=== PATIENT | female | born 1970 | race Caucasian/White ===

== ENCOUNTER 2018-03-29 19:11 | Emergency (ER) | payer BC, OTHER ==
[~2018-03-29] VITALS: Ht 167.6 cm; Wt 80.7 kg
[2018-03-29 19:17] VITALS: Ht 167.6 cm; Wt 80.7 kg
[2018-03-29] MEDS ORDERED: OXYCODONE HCL IR 5 MG TAB (IMMEDIATE RELEASE) PO STA (19:26)
[2018-03-29] MEDS ORDERED: CEPHALEXIN MONOHYDRATE 250 MG CAP PO ONE (19:30)
--- NOTE | 2018-03-29 20:04 | DIAGNOSTIC IMAGING REPORT ---
R HAND MIN 3 VIEWS ROUTINE CLINICAL HISTORY: 47 years-old Female presenting with eval for fx. TECHNIQUE: Frontal, oblique, and lateral views of the right hand were obtained. COMPARISON: None. FINDINGS: Joint space loss, osteophytosis, subchondral sclerosis noted at the scaphoid-trapezium and scaphoid-trapezoid articulations. No acute fracture or malalignment. No radiographic soft tissue abnormality. IMPRESSION: 1. No acute osseous injury. 2. Degenerative changes at the scaphoid-trapezium and scaphoid-trapezoid articulations, characteristic of osteoarthritis. Electronically signed by: Quan Mathias M.D. 03/29/2018 8:03 PM Dictated Date/Time: 03/29/2018 8:01 PM
[2018-03-29] MEDS ORDERED: OXYCODONE IR HOME PACK PO ONE (20:30)
[2018-03-29 20:38] VITALS: BP 131/97; PULSE 81; TEMP 36.6; O2SAT 98
--- NOTE | 2018-03-29 21:53 | EMERGENCY ROOM VISIT NOTE ---
History Report prepared by Nereida: Domitila Wright Under the Supervision of: Dr. Christian Diggs M.D. First contact with patient: 19:21 Chief Complaint: HAND PAIN/INJURY Stated Complaint: RIGHT HAND CRUSH History of Present Illness The patient is a 47 year old female who presents to the Emergency Room with complaints of constant right hand pain and tingling secondary to an injury that occurred just prior to arrival. The patient notes that she was hooking up a wagon to a tractor when the tongue of the tractor pinched her right hand. The patient reports tingling in the 4th and 5th fingers on her right hand, and she describes the sensation as "pins and needles." She currently rates her pain a 6/ 10. The patient claims that she did no injure any other body part. She also denies a history of hypertension. Source of History: patient Onset: just prior to arrival Position: hand (right) Symptom Intensity: 6/10 Quality: tingling Timing: constant Associated Symptoms: No weakness Review of Systems See HPI for pertinent positives & negatives. A total of 6 systems reviewed and were otherwise negative. Past Medical & Surgical Medical Problems: (1) No significant past medical history Family History No pertinent family history Social History Smoking Status: Never Smoker Allergies Coded Allergies: Penicillins (Verified Allergy, Severe, 09/16/09) HIVES Physical Exam Vital Signs Date Time Temp Pulse Resp B/P (MAP) Pulse Ox O2 Delivery O2 Flow Rate FiO2 03/29/18 20:38 36.6 81 16 131/97 98 03/29/18 20:37 81 16 131/97 98 Room Air 03/29/18 19:17 36.6 85 16 149/101 98 Room Air Physical Exam Constitutional: Vital signs reviewed. Respiratory: Clear to auscultation bilaterally. Breath sounds are equal bilaterally. Cardiovascular: Regular rate and rhythm. No rubs or gallops. Musculoskeletal: Localized swelling and tenderness to the right hand over the fifth metacarpal phalangeal joint. She is able to flex and extend the fourth and fifth digits. Normal distal cap refill. Integumentary: 1 cm C-shaped skin flap to the volar aspect of the fifth MCP joint without bleeding or injury to deeper structures. Neurological: The patient is awake and alert. No focal deficits. Sensation is intact throughout the right hand including fourth and fifth digits. Psychiatric: Normal affect. Medical Decision & Procedures ER Provider Diagnostic Interpretation: Radiology results as stated below per my review and the radiologist's interpretation: R HAND MIN 3 VIEWS ROUTINE CLINICAL HISTORY: 47 years-old Female presenting with eval for fx. TECHNIQUE: Frontal, oblique, and lateral views of the right hand were obtained. COMPARISON: None. FINDINGS: Joint space loss, osteophytosis, subchondral sclerosis noted at the scaphoid-trapezium and scaphoid-trapezoid articulations. No acute fracture or malalignment. No radiographic soft tissue abnormality. IMPRESSION: 1. No acute osseous injury. 2. Degenerative changes at the scaphoid-trapezium and scaphoid-trapezoid articulations, characteristic of osteoarthritis. Electronically signed by: Quan Mathias M.D. 03/29/2018 8:03 PM Dictated Date/Time: 03/29/2018 8:01 PM Medications Administered Medications (Trade) Dose Ordered Sig/Estrada Route Start Time Stop Time Status Last Admin Dose Admin Cephalexin Monohydrate (Keflex Cap) 500 mg NOW ONCE PO 03/29/18 19:30 03/29/18 19:31 DC 03/29/18 20:12 500 MG Oxycodone HCl (Roxicodone Immediate Rel Tab) 5 mg NOW STAT PO 03/29/18 19:26 03/29/18 19:27 DC 03/29/18 20:13 5 MG Oxycodone HCl (Roxicodone Immediate Rel 5MG Home Pack) 1 homepack UD ONCE PO 03/29/18 20:30 03/29/18 20:31 DC 03/29/18 20:36 1 HOMEPACK ED Course 1924: The patient was evaluated in room C12B. A complete history and physical exam was performed. 1925: Administered Oxycodone HCl 5 mg PO. 1929: Administered Keflex Cap 500 mg PO. 2029: Administered Oxycodone HCl 1 homepack PO. 2037: Upon reevaluation, the patient appeared to have improvement of her symptoms. I discussed arthur's findings with her, including her x-ray. The patient noted that her last tetanus shot was in 2008. She verbalized agreement of the treatment plan. She stated that she would follow up with Dr. Rivero - Orthopedics. The patient was discharged home. Medical Decision This is a 47-year-old female presents with an injury to right hand. Differential diagnosis includes open fracture, partial tendon injury, crush injury, laceration. I did perform a limited focused review of portions of the patient's old chart on the electronic medical record. The patient has had no recent pertinent visits to this hospital. I did evaluate the patient as noted above. The patient presents with a crush injury to her right hand. Her tetanus is up-to-date. Initially was concerned about an open fracture and so I did treat the patient with oxycodone and Keflex. I did order and personally review the patient's hand x-rays as described above. There is no evidence of acute fracture. I did reexamine the patient. I did clean the area with water and she did not have a laceration to her hand. She only had a small superficial skin flap. She cleaned the area with soap and water and she was placed in a bare metal splint to immobilize the MCP joint in case there was a partial tendon injury. She was advised to follow- up with Dr. Rivero. She was discharged with a home pack of oxycodone. She was given return precautions as outlined below. Medication Reconcilliation Current Medication List: was personally reviewed by me Blood Pressure Screening Patient's blood pressure: Elevated blood pressure Blood pressure disposition: Referred to PCP Impression Primary Impression: Crushing injury of right hand Scribe Attestation The scribe's documentation has been prepared under my direct and personally reviewed by me in its entirety. I confirm that the note above accurately reflects all work, treatment, procedures, and medical decision making performed by me. Departure Information Dispostion Home / Self-Care Forms HOME CARE DOCUMENTATION FORM, IMPORTANT VISIT INFORMATION Patient Instructions My [facility] Additional Instructions You have been examined and treated today on an emergency basis only. This is not a substitute for, or an effort to provide, complete comprehensive medical care. It is impossible to recognize and treat all injuries or illnesses in a single emergency department visit. It is therefore important that you follow up closely with Dr. Rivero of orthopedics next week. Call as soon as possible for an appointment. Return for worsening symptoms or if you develop loss of sensation or ability to move your right fifth digit or if the finger becomes severely swollen or discolored or cold, or any other concerning symptoms. Problem Qualifiers Primary Impression: Crushing injury of right hand Encounter type: initial encounter Qualified Codes: S67.21XA - Crushing injury of right hand, initial encounter
== END 2018-03-29 20:38 | disposition home or self-care (01) ==
LOC: C.EDB 19:14 → C.EDC 20:38
DX: S67.21XA Crushing injury of right hand, initial encounter (principal); W23.0XXA Caught, crushed, jammed, or pinched between moving objects, initial encounter; Y93.89 Activity, other specified; I10 Essential (primary) hypertension; Z88.0 Allergy status to penicillin

== ENCOUNTER 2025-02-11 06:48 | Observation (INO) ==
--- NOTE | 2025-01-15 11:43 | PAT Medication Instructions ---
Medication Instructions Date of Service January 15, 2025 Home Medications cholecalciferol (vitamin D3) 25 mcg (1,000 unit) tablet (Vitamin D3) 3,000 unit PO QAM omega 1-cxd-nyy-fish oil 1,000 mg (120 mg-180 mg) capsule (Fish Oil) 2 cap PO QPM metformin 500 mg tablet 500 mg PO HS L.acidophilus,rhamnosus-B.breve-S.thermophilus 3 billion cell chew tab 2 tab PO QAM turmeric root extract 150 mg-randall root extract 25 mg chewable tablet 2 tab PO QAM duloxetine 30 mg capsule,delayed release 30 mg PO HS lisinopril 2.5 mg tablet 2.5 mg PO HS meloxicam 15 mg tablet 15 mg PO HS rosuvastatin 5 mg tablet 5 mg PO HS semaglutide 1 mg/dose (2 mg/1.5 mL) subcutaneous pen injector 1 mg subcut WK MEDICATION INSTRUCTIONS: ASK your surgeon for instructions meloxicam 15 mg tablet 15 mg PO HS STOP taking 2 weeks before surgery turmeric root extract 150 mg-randall root extract 25 mg chewable tablet 2 tab PO QAM omega 8-qlh-wkv-fish oil 1,000 mg (120 mg-180 mg) capsule (Fish Oil) 2 cap PO QPM DO NOT take the morning of surgery cholecalciferol (vitamin D3) 25 mcg (1,000 unit) tablet (Vitamin D3) 3,000 unit PO QAM L.acidophilus,rhamnosus-B.breve-S.thermophilus 3 billion cell chew tab 2 tab PO QAM Take evening before surgery metformin 500 mg tablet 500 mg PO HS duloxetine 30 mg capsule,delayed release 30 mg PO HS lisinopril 2.5 mg tablet 2.5 mg PO HS rosuvastatin 5 mg tablet 5 mg PO HS Other Notes As per RN phone interview, last dose to be 01/31/25 of: semaglutide 1 mg/dose (2 mg/1.5 mL) subcutaneous pen injector 1 mg subcut WK Remember: NOTHING TO EAT OR DRINK AFTER MIDNIGHT If you have any questions please call us at [phone] or [phone] or [phone] or [phone]
--- NOTE | 2025-01-22 09:07 | Anesthesiology Consultation ---
Date of Service January 22, 2025 Assessment & Plan (1) Encounter for pre-operative examination: - Check BSG DOS - Infectious disease screening: Per assessment on 01/22/25- No known recent infectious disease contacts or current infectious disease symptoms. - GLP-1 medication instructions: Patient informed by [facility] to stop 7 days prior to surgery- voiced understanding. DOS 02/11. Advised last dose to be 01/31. - Outpatient joint pathway: Per OR booking comments, plan for outpatient joint program. Patient seen at [facility] 01/22/25. Patient is an acceptable candidate to proceed as planned outpatient joint pathway pending perioperative course. Surgeon's office arranging post-op home management. - Patient acceptable risk for surgery pending surgeon-ordered PCP preop evaluation (Chary BOWLING, appt 02/01). Chart Review Chart Review: Patient seen in Pre Admission Testing History Surgery Operation Date: 02/11/25 08:15 Proposed Procedures p OP: Left Total Hip Arthroplasty - Quan Peng MD Height/Weight Height: 5 ft 6 in Weight: 78.2 kg Allergies Allergy/AdvReac Type Severity Reaction Status Date / Time Penicillins Allergy Severe Itchiness Verified 01/15/25 11:14 Medications Home Medications Medication Instructions Recorded Confirmed Last Taken cholecalciferol (vitamin D3) 25 3,000 unit PO QAM 09/16/19 01/15/25 10/09/22 08:00 mcg (1,000 unit) tablet (Vitamin D3) omega 5-vek-pej-fish oil 1,000 mg 2 cap PO QPM 09/16/19 01/15/25 09/12/22 (120 mg-180 mg) capsule (Fish Oil) metformin 500 mg tablet 500 mg PO HS 07/27/22 01/15/25 10/08/22 L.acidophilus,rhamnosus-B.breve-S.thermophilus 2 tab PO QAM 10/04/22 01/15/25 10/08/22 3 billion cell chew tab turmeric root extract 150 2 tab PO QAM 10/04/22 01/15/25 10/04/22 mg-randall root extract 25 mg chewable tablet duloxetine 30 mg capsule,delayed 30 mg PO HS 01/15/25 01/15/25 Unknown release lisinopril 2.5 mg tablet 2.5 mg PO HS 01/15/25 01/15/25 Unknown meloxicam 15 mg tablet 15 mg PO HS 01/15/25 01/15/25 Unknown rosuvastatin 5 mg tablet 5 mg PO HS 01/15/25 01/15/25 Unknown semaglutide 1 mg/dose (2 mg/1.5 1 mg subcut WK 01/15/25 01/15/25 Unknown mL) subcutaneous pen injector Past Medical History Medical History Diabetes mellitus History of prolapse of bladder s/p bladder lift HLD (hyperlipidemia) HTN (hypertension) Hx of squamous cell carcinoma Osteoarthritis Perimenopausal Taking duloxetine for hot flashes Sleep apnea "Mild" Recently started CPAP (01/14/25) Exercise / Class Metabolic Activity II 4-5 Yardwork/Stairs/Walk up hill (one FS: No CP, no SOB) Past Family History Family History Mother Cancer Father Diabetes Other No family history of adverse response to anesthesia Past Surgical History Surgical History H/O: hysterectomy (2012) d/t prolapse- vaginal hysterectomy History of bladder surgery (2015) Bladder lift (no mesh or sling) History of carpal tunnel release (2010) R/L Hx laparoscopic cholecystectomy (10/10/22) Robotic Assisted Laparoscopic Cholecystectomy Hx of colonoscopy Status post Mohs surgery for squamous cell carcinoma of skin Past Anesthesia History No Hx of Anesthesia Complications and No Family Hx of Anesthesia Complications History of PONV No Hx of PONV and No Hx of Motion Sickness Social History Smoking Status: Never smoker Do You Dip or Chew Tobacco: No Hx Alcohol Use: No Hx Substance Use: No substance use type: does not use Review of Systems Patient denies chest pain, shortness of breath, dyspnea on exertion, fever, chills, cough, wheezing, palpitations. Physical Exam Vital Signs BP 115/81 P 85 TEMP 98.0 SP02 96%RA RESP 16 Physical Full cervical extension range of motion. Full TMJ range of motion. TMD > or= 3.5 finger breaths Mallampati Score II Dentition: intact, + crown Lungs: clear throughout to auscultation Cardiac: regular rate and rhythm, no murmurs noted Spine: normal Carotid arteries: negative bruit Extremities: no LE edema Lab Results Anesthesia Preop Results Results Anesthesia Widget: WBC 6.42 K/ul (4.8-10.8) 01/22/25 Hgb 13.5 g/dl (12.0-16.0) 01/22/25 Hct 39.5 % (37.0-47.0) 01/22/25 Plt 239 K/uL (130-400) 01/22/25 Na 140 mmol/L (136-145) 01/22/25 K 3.8 mmol/L (3.5-5.1) 01/22/25 Cl 107 mmol/L (98-107) 01/22/25 CO2 26 mmol/L (21-32) 01/22/25 BUN 27 mg/dl (6-23) H 01/22/25 Creat 0.66 mg/dl (0.6-1.2) 01/22/25 Glucose Level 112 mg/dl (70-99(Fasting)) H 01/22/25 PT 10.4 Seconds (9.0-12.0) 01/22/25 PTT 27 Seconds (21-31) 01/22/25 INR 1.0 (0.9-1.1) 01/22/25 HA1c 6.1 % (4.5-5.6) H 01/22/25 Urine Color Yellow 01/22/25 Urine Appearance Cloudy (Clear) A 01/22/25 Urine pH 5.0 (4.5-7.5) 01/22/25 Urine Specific Whitmer 1.031 (1.000-1.030) H 01/22/25 Urine Protein Negative (Negative) 01/22/25 Urine Glucose (UA) Negative (Negative) 01/22/25 Urine Ketones Trace (Negative) H 01/22/25 Urine Blood Negative (Negative) 01/22/25 Urine Nitrite Negative (Negative) 01/22/25 Urine Bilirubin Negative (Negative) 01/22/25 Urine Urobilinogen Negative (Negative) 01/22/25 Urine Leukocyte Esterase Negative (Negative) 01/22/25 Urine WBC (Auto) 0-5 /hpf (0-5) 01/22/25 Urine RBC (Auto) 3-5 /hpf (0-2) H 01/22/25 Urine Hyaline Casts (Auto) 0-2 /lpf (0-2) 01/22/25 Urine Epithelial Cells (Auto) 6-10 /hpf (0-2) H 01/22/25 Urine Bacteria (Auto) 1+ (None Seen) H 01/22/25 Blood Type O Positive 01/22/25 Antibody Screen NEGATIVE 01/22/25 Testing Laboratory Results Surgeon's office made aware of abnormal UA* Electrocardiogram Date: 01/22/25 NSR at 81bpm. iRBBB. No significant change compared to 08/27/2022 per lead technician comparison.
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
[~2025-02-11 06:48] MED LIST: MEPIVACAINE HCL 1.5% 30 ML VIAL ONE
[2025-02-11] MEDS: CeleBREX 200 MG CAP PO SCH (07:17)
[2025-02-11] MEDS: LR 500ML BOLUS, THEN 15ML/HR IV SCH (07:17)
[2025-02-11] MEDS: ACETAMINOPHEN 500 MG TAB PO SCH ×2 (07:17→22:38)
[2025-02-11] MEDS: dexAMETHasone**PF** 10 MG/ML VIAL IV SCH (07:18)
[2025-02-11] MEDS: FAMOTIDINE 20 MG TAB PO SCH (07:18)
[2025-02-11] MEDS: LR 60ML/HR IV SCH (07:22)
[2025-02-11] MEDS ORDERED: MIDAZOLAM HCL 1 MG/ML 2ML VIAL ONE ×2 (07:31→07:40)
[2025-02-11] MEDS ORDERED: ATROPINE SULFATE 0.1 MG/ML 10ML SYR IV PRN (07:40)
[2025-02-11] MEDS ORDERED: ONDANSETRON INJ 2 MG/ML 2 ML VIAL IV PRN ×2 (07:40→15:49)
--- NOTE | 2025-02-11 07:53 | History & Physical Bridge Note ---
Date of Service February 11, 2025 History & Physical Bridge Note I have examined the patient, reviewed the History & Physical and in the interval since the performance of the History & Physical I have noted the following changes of clinical significance: no changes noted
[2025-02-11] MEDS: TRANEXAMIC ACID 1,000 MG **IV Pre-op IV SCH (07:55)
[2025-02-11] MEDS: ORTHO JOINT ANESTHETIC ONE (09:07)
[2025-02-11] MEDS: ROPIVACAINE 0.5% HCL/PF 246 MG, Ketorolac (*for OR use only*) 30 MG, EPINEPHrine 30MG/3... INFIL SCH (09:10)
[2025-02-11] MEDS ORDERED: ceFAZolin 330 MG/ML 1 GM VIAL ONE (09:32)
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
--- NOTE | 2025-02-11 10:34 | Operative Report ---
Post Operative Report Pre & Post Diagnosis Operation Date: 02/11/25 08:15 Pre-Op Diagnosis: Left Hip Osteoarthritis Post-Op Diagnosis: Left Hip Osteoarthritis I identified the patient and participated in the time-out.: Yes Procedure Operation Date: 02/11/25 08:15 Actual Procedures p Left Total Hip Arthroplasty, Uncemented(Left) - Quan Peng MD Surgeon Quan Peng MD Mold Press Operator Alf Chavez DO and BRITT Hercules PA-C. Estimated Blood Loss 200 Findings Consistent with Post-Op Diagnosis Specimens Left femoral head Description of Procedure Patient was brought to the operative suite where she underwent anesthesia. Patient was placed in the right lateral decubitus position. Left lower extremity was prepped and draped in the usual sterile fashion. Surgical timeout was performed. Patient underwent a left total hip arthroplasty. Please see Dr. Peng's operative report for full details. I was present and assisted with patient positioning, limb positioning, surgical approach, hemostasis, hardware implantation, wound closure, postoperative dressing placement. Patient was taken to recovery in stable condition. I attest to the content of the Intraoperative Record and any orders documented therein. Any exceptions are noted below.
--- NOTE | 2025-02-11 10:35 | Operative Report ---
Post Operative Report Pre & Post Diagnosis Operation Date: 02/11/25 08:15 Pre-Op Diagnosis: Left Hip Osteoarthritis Post-Op Diagnosis: Left Hip Osteoarthritis I identified the patient and participated in the time-out.: Yes Procedure Operation Date: 02/11/25 08:15 Actual Procedures p Left Total Hip Arthroplasty, Uncemented(Left) - Quan Peng MD Surgeon Quan Peng MD Leasing Specialist Alf Chavez DO and BRITT Hercules PA-C. Estimated Blood Loss 200 Findings Consistent with Post-Op Diagnosis Specimens femoral head Description of Procedure I was present during the entire case assisting with positioning, prepping, draping, wound retraction, wound closure, dressing and abduction pillow placement. Fellow also present. I served as an extra set of hands during the case. Please see Dr. Peng procedure note for specifics of the case. I attest to the content of the Intraoperative Record and any orders documented therein. Any exceptions are noted below.
--- NOTE | 2025-02-11 11:14 | XRay Report ---
XR pelvis 1-2V routine CLINICAL HISTORY: Post Surgical COMPARISON: 01/26/2025 FINDINGS: Left hip prosthesis shows no hardware complication. There is expected soft tissue gas. Sta ble degenerative changes right hip. IMPRESSION: Unremarkable postoperative exam. ACT 112: Negative or not required by law. Electronically signed by: Jeremiah Phan M.D. 02/11/2025 11:12 AM
--- NOTE | 2025-02-11 11:31 | Anesthesiology Progress Note ---
Date of Service February 11, 2025 Anesthesia Post Procedure Vital Signs Vital Signs: Temp Pulse Pulse Resp BP BP Pulse Ox 02/11/25 11:05 97.7 F 78 12 115/90 100 02/11/25 10:55 87 11 L 151/84 H 93 02/11/25 10:45 94 H 12 133/71 95 02/11/25 10:35 85 12 130/87 99 02/11/25 10:27 96.8 F L 92 H 13 127/81 95 02/11/25 07:38 98.2 F 83 20 133/84 95 O2 Del Method O2 Flow Rate 02/11/25 11:05 Room Air 0 02/11/25 10:55 Room Air 0 02/11/25 10:45 Room Air 0 02/11/25 10:35 Oxymask 4 02/11/25 10:27 Oxymask 4 02/11/25 07:38 Room Air Pain Intensity Left Hip: Pain Intensity: 4 Transfer of Care Handoff Completed per policy Notes Mental Status: alert / awake / arousable and participated in evaluation Patient Amnestic to Procedure: Yes Nausea / Vomiting: adequately controlled Pain: adequately controlled Airway Patency, RR, SpO2: stable & adequate BP & HR: stable & adequate Hydration State: stable & adequate Neuraxial Anesthesia: was administered and sensory block is resolving Anesthetic Complications: no major complications apparent and Pt Satisfied with anesthetic care
[2025-02-11] MEDS ORDERED: HYDROmorphone INJ 1 MG/ML SYRINGE IV PRN (15:49)
[2025-02-11] MEDS ORDERED: NALOXONE HCL 0.4 MG/1 ML VIAL/CARP IV PRN (15:49)
[2025-02-11] MEDS ORDERED: HYDROmorphone INJ 0.5 MG/0.5 ML SYR IV PRN (15:49)
[2025-02-11] MEDS ORDERED: MAGNESIUM HYDROXIDE SUSP 30 ML UDC PO PRN (15:49)
[2025-02-11] MEDS ORDERED: diphenhydrAMINE 50 MG/ML VIAL IV PRN (15:49)
[2025-02-11 15:54] VITALS: RESP 16
[2025-02-11] MEDS: SODIUM CHLORIDE 0.9% 1,000 ML IV SCH (17:52)
[2025-02-11] MEDS: Scopolamine CHECK PATCH PLACEMENT SCH (17:55)
[2025-02-11] MEDS: KETOROLAC 30 MG/ML VIAL IV SCH (18:40)
[2025-02-11] MEDS: SENNA 8.6 MG TAB PO SCH (20:26)
[2025-02-11] MEDS: OMEGA-3 (PURIFIED FISH OIL) 1 GM CAP PO SCH (20:26)
[2025-02-11] MEDS: DOCUSATE SODIUM 100 MG CAP PO SCH (20:26)
[2025-02-11] MEDS: ROSUVASTATIN CALCIUM 5 MG TAB PO SCH (20:27)
[2025-02-11] MEDS: ASPIRIN 81 MG ECTAB PO SCH (20:27)
[2025-02-12] MEDS: dexAMETHasone 10 MG in SYRINGE 0 ML IV SCH (07:23)
[2025-02-12] MEDS: CHOLECALCIFEROL 25 MCG (1000 UNITS) TAB PO SCH (07:24)
[2025-02-12] MEDS: MULTIVITAMIN TAB PO SCH (07:25)
[2025-02-12 07:35] VITALS: BP 110/72; PULSE 66; TEMP 97.7; O2SAT 98
[2025-02-12 07:36] LABS: Hematocrit (blood only) 32.1 % (37.0-47.0); Hemoglobin 10.8 g/dl (12.0-16.0); Immature Granulocytes # (auto) 0.08 K/uL (0.01-0.20); Immature Granulocytes % (auto) 0.6 %; Mean Corpuscular Hemoglobin 30.9 pg (25.0-34.0); Mean Corpuscular Volume 91.7 fL (80.0-100.0); Platelet Count 202 K/uL (130-400); RDW Standard Deviation 39.8 fL (36.4-46.3); Red Blood Count 3.50 M/uL (4.20-5.40); White Blood Count 12.96 K/ul (4.8-10.8)
[2025-02-12 07:57] LABS: Anion Gap 6.0 (3-11); Blood Urea Nitrogen 16.0 mg/dl (6-23); Calcium 9.2 mg/dl (8.6-10.3); Carbon Dioxide 28.0 mmol/L (21-32); Chloride 104.0 mmol/L (98-107); Creatinine Clr Calc Pharmacy 102.0 ml/min; Glucose 145.0 mg/dl (70-99(Fasting)); Potassium 3.9 mmol/L (3.5-5.1); Sodium 138.0 mmol/L (136-145)
[2025-02-14] MEDS ORDERED: Scopolamine REMOVE TRANSDERM PATCH ONE (08:00)
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
== END 2025-02-12 11:45 | disposition home health service (06) ==
LOC: ASU 06:48 → 3E 06:48

== ENCOUNTER 2025-02-14 21:34 | Observation (INO) ==
[2025-02-14 22:09] LABS: Hematocrit (blood only) 32.9 % (37.0-47.0); Hemoglobin 11.0 g/dl (12.0-16.0); Immature Granulocytes # (auto) 0.04 K/uL (0.01-0.20); Immature Granulocytes % (auto) 0.4 %; Mean Corpuscular Hemoglobin 31.3 pg (25.0-34.0); Mean Corpuscular Volume 93.7 fL (80.0-100.0); Platelet Count 234 K/uL (130-400); RDW Standard Deviation 42.5 fL (36.4-46.3); Red Blood Count 3.51 M/uL (4.20-5.40); White Blood Count 9.84 K/ul (4.8-10.8)
[2025-02-14] MEDS: OPTIRAY 320 125ml IV ONE (22:20)
[2025-02-14 22:26] LABS: Alanine Aminotransferase 20.0 U/L (7-52); Albumin Globulin Ratio 1.5 (0.9-2); Alkaline Phosphatase 76.0 U/L (34-104); Anion Gap 6.0 (3-11); Bilirubin,Total 0.4 mg/dl (0.2-1.0); Blood Urea Nitrogen 11.0 mg/dl (6-23); Calcium 9.1 mg/dl (8.6-10.3); Carbon Dioxide 30.0 mmol/L (21-32); Chloride 102.0 mmol/L (98-107); Creatinine Clr Calc Pharmacy 106.3 ml/min; Globulin 2.6 gm/dl (2.5-4.0); Glucose 183.0 mg/dl (70-99(Fasting)); Magnesium 1.9 mg/dl (1.7-2.4); Potassium 3.8 mmol/L (3.5-5.1); Sodium 138.0 mmol/L (136-145); Total Protein 6.4 gm/dl (6.0-8.3)
[2025-02-14] MEDS: SODIUM CHLORIDE 0.9% 1,000 ML IV SCH (22:26)
[2025-02-14 22:41] LABS: Thyroid Stimulating Hormone 1.509 uIu/ml (0.300-4.500)
--- NOTE | 2025-02-15 01:41 | Emergency Department Note ---
Impression & Plan Palpitations, Sinus tachycardia ED Provider Note NAME: KRISS HODGES AGE: 54 SEX: Female INFORMANT: Patient ED PROVIDER(S): Price Rosario MD CHIEF COMPLAINT: Palpitations PLAN: Disposition: Pending Outpatient prescription management: none Referral: MEDICAL DECISION MAKING: Patient presented because of palpitations. She had some shortness of breath. Given her recent surgery a workup was initiated. She was slightly anemic but had no leukocytosis on CBC. Chemistry panel was unremarkable. Cardiac troponin x 1 was negative. Initial ECG has some poor baseline data however she had a slight sinus tachycardia. There was no ST elevation or depression. Cardiac monitoring revealed a sinus rhythm. Patient's elevated heart rate dropped to normal without direct intervention. Repeat ECG was performed and did show a sinus rhythm. Patient's BnP and other labs were normal. CT PE study was performed. CT imaging pending. Patient's disposition signed out to Dr. Douglass at the change of shift. Care/management discussed with: none Level of care consideration(s): After review of the information above and other included data, I feel the patient may require additional care based upon CT imaging and outcome. Triage Nursing notes: reviewed and agree them. Vital Signs: reviewed and remarkable for slight tachycardia on arrival however that resolved and did not recur. Additional History obtained from: none Chronic Medical/Social Conditions affecting care: Recent hip surgery Prior/ Outside/ External records reviewed: Operative note from surgery reviewed. Patient had hip replacement done for osteoarthritis on the 02/11. Differential Diagnosis: Premature contractions, electrolyte abnormality, cardiac dysrhythmia, thyroid dysfunction, pulmonary embolism, infection, gastrointestinal, as well as other pathologies. Diagnostics, independently interpreted by me: EC-lead ECG #1 reveals a sinus tachycardia at 103 bpm. Incomplete right bundle branch block present. No ST elevation or depression. Poor baseline data. Twelve-lead ECG #2 reveals a normal sinus rhythm at 82 bpm. Incomplete right bundle branch block. No ST elevation or depression. Cardiac Monitoring: Cardiac monitoring ordered by me: The patient was placed on continuous cardiac monitoring and observed. It revealed a normal sinus rhythm at 86 beats per minute without ectopy or evidence of dysrhythmia. Medical decision rules: none Imaging studies: CT imaging of the chest reveals no obvious evidence of saddle embolism or pneumonia. Atelectasis in the bases noted. Official read pending. HPI: 54 year old Female arrives for evaluation of palpitations. This started this evening and is improving.. The patient also notes the following associated symptoms, shortness of breath and feeling weak. The patient has taken no medication for relieving factors. Current pain is rated as 0/10. Patient notes undergoing hip surgery 4 days ago. Pt denies LOC, headache, fevers, chills, diaphoresis, visual changes, neck pain, chest pain, nausea, vomiting, abdominal pain, back pain, melena, hematochezia, urinary symptoms, bleeding or drainage from surgical bandages, or other complaints. PAST MEDICAL HISTORY: See Below, osteoarthritis PAST SURGICAL HISTORY: See Below, SOCIAL HISTORY: See Below, HOME MEDICATIONS: See Below ALLERGIES: See Below VITALS: See Below PHYSICAL EXAMINATION: GENERAL: Awake, alert, iog-fulcmfeluqk-ggvebzpgu, in no distress HENT: Normocephalic, atraumatic. Oropharynx unremarkable. EYES: Normal conjunctiva. Sclera non-icteric. NECK: Inspection normal. Non-tender. Supple. No nuchal rigidity. FROM. No masses. RESPIRATORY: Clear to auscultation. No wheezes. No rales. Normal respiratory effort. CARDIAC: Normal rate. Normal rhythm. No murmurs. No rubs. Extremities warm and well perfused. Pulses equal. No JVD. GI: Soft, non-distended. No tenderness to palpation. No rebound or guarding. No masses. RECTAL: Deferred. MUSCULOSKELETAL: Atraumatic. Surgical incision is clean, dry and intact. Minimally tender on palpation over the bandages, not unexpected given postop day #4. No significant surrounding cellulitis, bleeding or discharge appreciated on inspection under the bandages. There is no CVA tenderness to palpation. No joint edema. LOWER EXTREMITIES: Left leg is slightly larger than the right although consistent with expected postoperative findings status post hip replacement. No calf tenderness or palpable cords. NEURO: Normal sensorium. No sensory or motor deficits noted. SKIN: No rash or jaundice noted. PROCEDURES: none CRITICAL CARE: none OBSERVATION NOTE: none Past Med/Surg History Problem List (Updated 02/15/25 @ 10:01 by Saeid Pineda MD) Sinus tachycardia (Acute) Palpitations (Acute) Osteoarthritis of left hip Medical History Osteoarthritis HLD (hyperlipidemia) HTN (hypertension) Sleep apnea "Mild" Recently started CPAP (01/14/25) Hx of squamous cell carcinoma Diabetes mellitus Perimenopausal Taking duloxetine for hot flashes History of prolapse of bladder s/p bladder lift Surgical History Hx laparoscopic cholecystectomy (10/10/22) Robotic Assisted Laparoscopic Cholecystectomy History of carpal tunnel release (2010) R/L Status post Mohs surgery for squamous cell carcinoma of skin Hx of colonoscopy History of bladder surgery (2015) Bladder lift (no mesh or sling) H/O: hysterectomy (2012) d/t prolapse- vaginal hysterectomy Family History Mother Cancer Father Diabetes Other No family history of adverse response to anesthesia Social History Smoking Status: Never smoker Second Hand Exposure: No; Do You Dip or Chew Tobacco: No; Hx Alcohol Use: No Hx Substance Use: No Preferred Language: Kyrgyz Communication Ability: Effective Environmental Law Professor Required: No Beliefs That Will Affect Care: Gnosticist marital status: Current Living Situation: Spouse How many Children do You have: 2 Feels Safe at Home: Yes Diet: diabetic during the past year weight has: remained stable Assistive Devices: Walker Allergies Allergies Allergy/AdvReac Type Severity Reaction Status Date / Time Penicillins Allergy Severe Itchiness Verified 02/11/25 07:04 Home Meds Home Medications Medication Instructions Recorded Confirmed cholecalciferol (vitamin D3) 25 3,000 unit PO QAM 09/16/19 02/15/25 mcg (1,000 unit) tablet (Vitamin D3) omega 9-zqu-yan-fish oil 1,000 mg 2 cap PO QPM 09/16/19 02/15/25 (120 mg-180 mg) capsule (Fish Oil) metformin 500 mg tablet 500 mg PO HS 07/27/22 02/15/25 L.acidophilus,rhamnosus-B.breve-S.thermophilus 2 tab PO QAM 10/04/22 02/15/25 3 billion cell chew tab turmeric root extract 150 2 tab PO QAM 10/04/22 02/15/25 mg-randall root extract 25 mg chewable tablet duloxetine 30 mg capsule,delayed 30 mg PO HS 01/15/25 02/15/25 release lisinopril 2.5 mg tablet 2.5 mg PO HS 01/15/25 02/15/25 meloxicam 15 mg tablet 15 mg PO HS 01/15/25 02/15/25 rosuvastatin 5 mg tablet 5 mg PO HS 01/15/25 02/15/25 semaglutide 1 mg/dose (2 mg/1.5 1 mg subcut WK 01/15/25 02/15/25 mL) subcutaneous pen injector Previous Rx's Medication Instructions Recorded oxycodone 5 mg tablet 10 mg (2 x 5 mg) PO Q6H PRN pain 02/12/25 #20 tabs aspirin 81 mg tablet,delayed 81 mg PO BID #60 tabs 02/15/25 release Results & Data (ED) Vital Signs Vital Signs - 24 hr 02/15/25 01:30 02/15/25 01:57 02/15/25 02:00 Pulse Rate 86 86 71 Respiratory Rate 16 18 Blood Pressure 117/75 110/73 Blood Pressure Mean 89 95 Pulse Oximetry 97 94 02/15/25 03:00 Pulse Rate 86 Respiratory Rate 18 Blood Pressure 121/80 Blood Pressure Mean 99 Pulse Oximetry 95 Laboratory Data 02/14/25 21:54 02/15/25 07:12 Lab Results 02/14/25 02/14/25 02/15/25 Range/Units 21:54 22:01 01:56 WBC 9.84 (4.8-10.8) K/ul RBC 3.51 L (4.20-5.40) M/uL Hgb 11.0 L (12.0-16.0) g/dl POC Hgb 11.2 L (12.0-16.0) g/dl Hct 32.9 L (37.0-47.0) % POC Hct 33 L (37-47) % MCV 93.7 (80.0-100.0) fL MCH 31.3 (25.0-34.0) pg MCHC 33.4 (32.0-36.0) g/dL RDW Std Deviation 42.5 (36.4-46.3) fL RDW Coeff of Ruperto 12.4 (11.5-14.5) % Plt Count 234 (130-400) K/uL MPV 10.9 (9.4-12.4) fL Immature Gran % (Auto) 0.4 % Neut % (Auto) 59.2 % Lymph % (Auto) 34.2 % [place] % (Auto) 4.5 % Eos % (Auto) 1.1 % Baso % (Auto) 0.6 % Neut # (Auto) 5.82 (1.40-6.50) K/uL Lymph # (Auto) 3.37 (1.20-3.40) K/uL [place] # (Auto) 0.44 (0.11-0.59) K/uL Eos # (Auto) 0.11 (0.00-0.50) K/uL Baso # (Auto) 0.06 (0.00-0.20) K/uL Immature Gran # (Auto) 0.04 (0.01-0.20) K/uL Absolute Nucleated RBC 0.02 (0.00-0.12) K/uL Nucleated RBC % (auto) 0.2 % POC Sodium 137 (135-144) mmol/L Sodium 138 (136-145) mmol/L POC Potassium 4.0 (3.3-5.0) mmol/L Potassium 3.8 (3.5-5.1) mmol/L POC Chloride 99 L (101-112) mmol/L Chloride 102 (98-107) mmol/L Carbon Dioxide 30 (21-32) mmol/L POC Total CO2 29 (24-31) mmol/L Anion Gap 6 (3-11) POC Anion Gap 14.0 L (16-25) mmol/L POC BUN 12 (7-18) mg/dl BUN 11 (6-23) mg/dl Creatinine 0.65 (0.6-1.2) mg/dl POC Creatinine 0.7 (0.6-1.3) mg/dl Est Cr Clr Drug Dosing 106.3 ml/min eGFR 105.21 BUN/Creatinine Ratio 16.9 (10-20) Glucose 183 H (70-99(Fasting)) mg/dl POC Glucose (other) 184 H (70-99) mg/dl Calcium 9.1 (8.6-10.3) mg/dl POC Ioniz Calcium Becka 1.18 (1.12-1.32) mmol/l Magnesium 1.9 (1.7-2.4) mg/dl Total Bilirubin 0.4 (0.2-1.0) mg/dl AST 37 (13-39) U/L ALT 20 (7-52) U/L Alkaline Phosphatase 76 (34-104) U/L Troponin I High Sens 3.3 2.5 (0-14) pg/ml B-Natriuretic Peptide 12 (0-100) pg/ml Total Protein 6.4 (6.0-8.3) gm/dl Albumin 3.8 (3.4-5.0) gm/dl Globulin 2.6 (2.5-4.0) gm/dl Albumin/Globulin Ratio 1.5 (0.9-2) TSH 1.509 (0.300-4.500) uIu/ml Administered Medications Aspirin (Aspirin 81 Mg Ectab) 81 mg PO DAILY [facility] Stop: 03/17/25 08:59 Last Admin: 02/15/25 08:30 Dose: 81 mg Documented By: SHARON Cephalexin HCl (Cephalexin 500 Mg Cap) 500 mg PO TID [facility]; Protocol Stop: 02/16/25 08:59 Last Admin: 02/15/25 14:32 Dose: 500 mg Documented By: Admin: 02/15/25 08:30 Dose: 500 mg Documented By: SHARON Sodium Chloride (Nss) 1,000 mls @ 125 mls/hr IV .Q8H [facility] Stop: 02/17/25 21:59 Last Admin: 02/15/25 14:24 Dose: Not Given Documented By: Infusion: 02/15/25 13:19 Dose: Infused Documented By: Admin: 02/15/25 06:16 Dose: 125 mls/hr Documented By: Infusion: 02/15/25 06:16 Dose: Infused Documented By: Admin: 02/14/25 22:26 Dose: 125 mls/hr Documented By: ANAHI Insulin Aspart (Insulin Aspart Per Unit Charge) 0 units SC ACHS [facility] Stop: 03/17/25 07:29 Last Admin: 02/15/25 12:46 Dose: Not Given Documented By: Admin: 02/15/25 08:30 Dose: 2 units Documented By: SHARON Co-signed By: ES Discontinued Medications Ioversol (Optiray 320 125ml) 115 ml IV ONCE ONE Stop: 02/14/25 22:20 Last Admin: 02/14/25 22:20 Dose: 115 ml Documented By: KAREN Discharge Plan Visit Data Chief Complaint: Arrhythmia/Palpitations Stated Complaint: RAPID HEART ED Provider: Antonieta Douglass Discharge Problem: Palpitations, Sinus tachycardia Patient Disposition: Admitted As Inpatient Condition: Good Discharge Instructions Interventions: ED Discharge Assessment Last Done: 02/15/25 03:49
--- NOTE | 2025-02-15 02:40 | XRay Report ---
Exam(s): XR CXR 1 VIEW EXAM: XR Chest, 1 View CLINICAL HISTORY: Reason for exam: Dysrhythmia. TECHNIQUE: Frontal view of the chest. COMPARISON: Prior chest x-ray from May 08, 2024. FINDINGS: Lungs: Mild to moderate peribronchial thickening of the central and lower lobe bronchi with increased interstitial opacities in the lower lobes. There is platelike atelectasis at the left lung base. No consolidation. Pleural space: Unremarkable. No pneumothorax. Heart: Unremarkable. No cardiomegaly. Mediastinum: Unremarkable. Normal mediastinal contour. Bones/joints: Unremarkable. No acute fracture. IMPRESSION: Bronchitis, which may be of infectious or inflammatory etiologies. No consolidation or pleural effusion. Electronically signed by: Hilary Evans MD 02/15/25 02:40 AM
--- NOTE | 2025-02-15 02:41 | CT Scan Report ---
Exam(s): CTA CHEST IV Amt: 115 ml optiray 320 EXAM: CT Angiography Chest With Intravenous Contrast CLINICAL HISTORY: Reason for exam: SOB, Tachy, recent LHR. TECHNIQUE: Axial computed tomographic angiography images of the chest with intravenous contrast. CTDI is 24.37 mGy and DLP is 707.82 mGy-cm. Automated exposure control was utilized for the study. A dose lowering technique was utilized adhering to the principles of ALARA. MIP reconstructed images were created and reviewed. COMPARISON: No relevant prior studies available. FINDINGS: Pulmonary arteries: No pulmonary embolism is seen. Aorta: No thoracic aortic aneurysm. Lungs: There are bibasilar areas of scarring and/or atelectasis.. Pleural space: No significant effusion. No pneumothorax. Heart: Heart is normal in size.. Bones/joints: There are degenerative changes in the spine.. Soft tissues: Unremarkable. Lymph nodes: No enlarged lymph nodes. IMPRESSION: No pulmonary embolism is seen. There are bibasilar areas of scarring and/or atelectasis.. Electronically signed by: True Leung MD 02/15/25 02:41 AM
--- NOTE | 2025-02-15 02:43 | Emergency Department Note ---
ED Visit Note Date and Time: 02/15/2025 240am Interval History: Sign out received from Dr. Rosario who reviewed details of the encounter. Patient was pending Results of the CT scan of the chest. Summary: Patient was re-evaluated And was asymptomatic. Vital signs are stable. CT scan of the chest showed no evidence of pulmonary embolism. It was positive for atelectasis. I discussed the case with the [facility] and they will evaluate for further inpatient care. .
--- NOTE | 2025-02-15 03:21 | History & Physical Report ---
Date of Service February 15, 2025 Assessment & Plan (1) Palpitations: (2) Osteoarthritis of left hip: Plan Norma is a 54 y/o female with pmh of hypertension, diabetes, hyperlipidemia, depression here due to palpitations and SOB. Patient had a total lef hip arthroplasty on 02/11. Patient states having palpitations, and SOB at rest. No chest pain or chest pressure. Denied any history of arrhythmias. Denied any chills or fever. Lab remarkable for anemia of 11.0 trending up. Chest CTA with no pulmonary embolism. Patient will be admitted for further monitoring on telemetry #Palpitations - Sudden palpitations and SOB in the setting of recent surgery - CTA negative for pulmonary embolism. CXR no consolidations - Labs remarkable for anemia of 11.0, trending up - normal TSh, normal electrolytes, no leukocytosis - EKG on arrival with sinus tachycardia, no ST depression or elevation - s/p 1L of NSS - Patient asymptomatic on admission - will admit for observation given recent surgery and tachycardia on med tele - Labs in am - Continue current LR 125 ml/hr #Left hip OA s/ total left hip replacement - continue pain medication oxycodone 10 mg q6h as needed - Cephalexin TID continue as prev prescribe #Hypertension - continue lisinopril #DM2 - home metformin and Ozempic held on admission - Novalog SSI added DVT prophylaxis: Continue Aspirin for DVT prophylaxis History of Present Illness Chief Complaint: Norma is a 54 y/o female with pmh of hypertension, diabetes, hyperlipidemia, depression here due to palpitations and SOB. Patient had a total left hip arthroplasty on 02/11. Patient states having palpitations, and SOB at rest. No chest pain or chest pressure. Denied any history of arrhythmias. Denied any chills or fever. Denied any abdominal pain, nausea, vomiting or diarrhea. Denied any sick contacts. Ambulating with walker post surgery. Lab remarkable for anemia of 11.0 trending up. Chest CTA with no pulmonary embolism. Patient will be admitted for further monitoring on telemetry Primary Care Provider: Chary Marks Allergies Allergy/AdvReac Type Severity Reaction Status Date / Time Penicillins Allergy Severe Itchiness Verified 02/11/25 07:04 Home Medications Medication Instructions Recorded Confirmed Type cholecalciferol (vitamin D3) 25 3,000 unit PO QAM 09/16/19 02/11/25 History mcg (1,000 unit) tablet (Vitamin D3) omega 3-mdc-qex-fish oil 1,000 mg 2 cap PO QPM 09/16/19 02/11/25 History (120 mg-180 mg) capsule (Fish Oil) metformin 500 mg tablet 500 mg PO HS 07/27/22 02/11/25 History L.acidophilus,rhamnosus-B.breve-S.thermophilus 2 tab PO QAM 10/04/22 02/11/25 History 3 billion cell chew tab turmeric root extract 150 2 tab PO QAM 10/04/22 02/11/25 History mg-randall root extract 25 mg chewable tablet duloxetine 30 mg capsule,delayed 30 mg PO HS 01/15/25 02/11/25 History release lisinopril 2.5 mg tablet 2.5 mg PO HS 01/15/25 02/11/25 History meloxicam 15 mg tablet 15 mg PO HS 01/15/25 02/11/25 History rosuvastatin 5 mg tablet 5 mg PO HS 01/15/25 02/11/25 History semaglutide 1 mg/dose (2 mg/1.5 1 mg subcut WK 01/15/25 02/11/25 History mL) subcutaneous pen injector oxycodone 5 mg tablet 10 mg (2 x 5 mg) PO Q6H PRN pain 02/12/25 Rx #20 tabs Past Med/Surg History Problem List (Updated 02/15/25 @ 01:48 by Price Rosario MD) Sinus tachycardia (Acute) Palpitations (Acute) Osteoarthritis of left hip Encounter for pre-operative examination Medical History Osteoarthritis HLD (hyperlipidemia) HTN (hypertension) Sleep apnea "Mild" Recently started CPAP (01/14/25) Hx of squamous cell carcinoma Diabetes mellitus Perimenopausal Taking duloxetine for hot flashes History of prolapse of bladder s/p bladder lift Surgical History Hx laparoscopic cholecystectomy (10/10/22) Robotic Assisted Laparoscopic Cholecystectomy History of carpal tunnel release (2010) R/L Status post Mohs surgery for squamous cell carcinoma of skin Hx of colonoscopy History of bladder surgery (2015) Bladder lift (no mesh or sling) H/O: hysterectomy (2012) d/t prolapse- vaginal hysterectomy Family History Mother Cancer Father Diabetes Other No family history of adverse response to anesthesia Social History Smoking Status: Never smoker Second Hand Exposure: No; Do You Dip or Chew Tobacco: No; Hx Alcohol Use: No Hx Substance Use: No Preferred Language: Venezuelan Communication Ability: Effective 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 Beliefs That Will Affect Care: None marital status: Current Living Situation: Spouse How many Children do You have: 2 Feels Safe at Home: Yes Diet: diabetic during the past year weight has: remained stable Assistive Devices: Walker Review of Systems Review of Systems: as per hpi Physical Exam Constitutional: WD/WN, vitals as above ENMT: external ear and nose normal, oropharynx normal Respiratory: normal respiratory effort, lungs clear to auscultation Cardiovascular: Rate/Rhythm: regular rate, regular rhythm and + tachycardic Heart Sounds: normal S1 and normal S2 Extremities: + edema Gastrointestinal (Abdomen): normal bowel sounds, soft, nontender, no hepatosplenomegaly Skin: no rashes, warm and dry Results & Data Results & Data Vital Signs (Past 12 Hours) Vital Signs Temp Pulse Resp BP Pulse Ox O2 Del Method 02/15/25 03:00 86 18 121/80 95 02/15/25 02:00 71 18 110/73 94 02/15/25 01:57 86 02/15/25 01:30 86 16 117/75 97 02/15/25 01:00 79 20 110/73 99 02/15/25 00:30 80 16 106/66 96 02/15/25 00:00 87 16 119/73 95 02/14/25 23:00 93 H 18 124/79 95 02/14/25 22:06 99 H 02/14/25 21:38 37.4 C 128 H 20 134/89 97 Room Air Code Status & VTE Plan VTE Prophylaxis Plan VTE Prophylaxis will be ordered: Yes Supervising Physician Co-Signing Physician Notes Patient seen and examined, chart reviewed, case discussed with Dr. Mely Hitchcock MD and I agree with the assessment and plan as above except as otherwise noted Labs and images reviewed 54-year-old female with a recent history of total hip arthroplasty, hypertension, diabetes, hyperlipidemia, depression who presents with dyspnea at rest and palpitation. Patient felt generally unwell felt her heart was abruptly racing and presented to the ER. CTA chest chest without evidence of PE. Was discussed with ER provider, due to recent surgery and concern for intermittent arrhythmia and unwellness was recommended for observation. Vital stable at time of assessment. Fluids added. CT independently reviewed no evidence of PE. On review of earlier EKG was sinus tachycardia. Initially reported as tolerated junctional however P waves with consistent [place] are seen consistent with sinus rhythm and junctional rhythm. Rate improving on recheck. Territory ischemia. Agree with above Resident Activity Tracking Resident Involvement: Resident Care Provided Care Provided: Adult Hospital Medicine
[2025-02-15] MEDS ORDERED: DEXTROSE 50% 50 ML SYRINGE IV PRN (03:49)
[2025-02-15] MEDS ORDERED: GLUCAGON FOR INJ 1 MG VIAL SQ PRN (03:49)
[2025-02-15] MEDS ORDERED: ONDANSETRON INJ 2 MG/ML 2 ML VIAL IV PRN (03:49)
[2025-02-15] MEDS ORDERED: GLUCOSE 10 TAB/TUBE PO PRN (03:49)
[2025-02-15] MEDS ORDERED: GLUCOSE 40% GEL 15 GM TUBE PO PRN (03:49)
[2025-02-15] MEDS ORDERED: CARBOHYDRATES FOR HYPOGLYCEMIA PO PRN (03:49)
[2025-02-15] MEDS ORDERED: ACETAMINOPHEN 325 MG TAB PO PRN (03:49)
--- NOTE | 2025-02-15 05:44 | Billing Data ---
Date of Service February 15, 2025 Coding Level of Care Code 94345 INT INP/OBS CARE
[2025-02-15 07:49] LABS: Anion Gap 4.0 (3-11); Blood Urea Nitrogen 9.0 mg/dl (6-23); Calcium 8.6 mg/dl (8.6-10.3); Carbon Dioxide 31.0 mmol/L (21-32); Chloride 106.0 mmol/L (98-107); Creatinine Clr Calc Pharmacy 132.8 ml/min; Glucose 137.0 mg/dl (70-99(Fasting)); Potassium 4.2 mmol/L (3.5-5.1); Sodium 141.0 mmol/L (136-145)
[2025-02-15] MEDS: ASPIRIN 81 MG ECTAB PO SCH (08:30)
[2025-02-15] MEDS: INSULIN ASPART PER UNIT CHARGE SC SCH (08:30)
[2025-02-15 11:24] VITALS: BP 130/85; PULSE 89; RESP 16; TEMP 97.9; O2SAT 93
--- NOTE | 2025-02-15 12:48 | XCELERA ---
[id number]
--- NOTE | 2025-02-15 14:08 | Discharge Summary ---
Date of Service February 15, 2025 Admission HPI Per Admitting Provider Norma is a 54 y/o female with pmh of hypertension, diabetes, hyperlipidemia, depression here due to palpitations and SOB. Patient had a total left hip arthroplasty on 02/11. Patient states having palpitations, and SOB at rest. No chest pain or chest pressure. Denied any history of arrhythmias. Denied any chills or fever. Denied any abdominal pain, nausea, vomiting or diarrhea. Denied any sick contacts. Ambulating with walker post surgery. Lab remarkable for anemia of 11.0 trending up. Chest CTA with no pulmonary embolism. Patient will be admitted for further monitoring on telemetry Admission Exam Per Admitting Provider Constitutional: WD/WN, vitals as above ENMT: external ear and nose normal, oropharynx normal Respiratory: normal respiratory effort, lungs clear to auscultation Cardiovascular: Rate/Rhythm: regular rate, regular rhythm and + tachycardic Heart Sounds: normal S1 and normal S2 Extremities: + edema Gastrointestinal (Abdomen): normal bowel sounds, soft, nontender, no hepatosplenomegaly Skin: no rashes, warm and dry Principal Diagnosis Palpitations, ?transient SVT Discharge Exam General: Awake alert and oriented in all spheres, sitting at bedside chair, afebrile, no acute distress Cardiovascular: Regular rate and rhythm, no rubs murmurs or gallops appreciated Pulm: CTA bilaterally, normal respiratory effort, no respiratory distress, breathing at room air GI: Soft, nontender, nondistended Extremities: No swelling or calf tenderness in bilateral lower extremities Discharge Data Allergies Allergy/AdvReac Type Severity Reaction Status Date / Time Penicillins Allergy Severe Itchiness Verified 02/11/25 07:04 Consultations 02/15/25 02:54 ED Decision to Admit Stat Ordered Studies 02/14/25 21:56 CT angio chest PE protocol Stat Hospital Course (1) Palpitations: (2) Osteoarthritis of left hip: Plan Norma is a 54 y/o female with pmh of hypertension, diabetes, hyperlipidemia, depression here due to palpitations and SOB. Patient had a total left hip arthroplasty on 02/11. #Palpitations - Sudden palpitations w/ associated lightheadedness and SOB in the setting of recent surgery; no known trigger when episodes occur and not liked to activity - No recurrence of sxs since time of admission - CTA negative for pulmonary embolism. CXR no consolidations - Labs remarkable for anemia of 11.0, trending up - TSH of 1.5, normal electrolytes, no leukocytosis - EKG on arrival with sinus tachycardia; also showing some mild ST segment depressions that resolved when HR decreased to < 100 bpm; no chest pain/pressure or numbness since time of admission; suspect could be related to demand ischemia from rapid rates - s/p IVF - TTE (02/15/25): EF 55-60%, normal LV systolic motion and systolic function, normal RV systolic pressure - Will discharge home and try to coordinate a 30-day heart monitor to r/o arrhythmia w/ outpatient PCP f/u #Left hip OA s/ total left hip replacement - continue outpatient f/u with ortho team as indicated, and ASA 81 mg bid for vte ppx as was advised by ortho team #Hypertension - continue lisinopril #DM2 - continue metformin and Ozempic after discharge Total Time Total Time Spent Total Time Spent (In Minutes): As per attending attestation. Discharge Plan Discharge Items Patient Disposition: Home - Self-Care Reason For Visit: TACHYCARDIA, SOB Discharge Diagnosis: Palpitations Activity: Per Instructions section Non-emergency contact: Primary Care Provider Call non-emergency contact if: your symptoms worsen and your temperature is above 101.5 Follow-up/Referrals: Chary Marks [Primary Care Provider] - Diet: Carb Consistent or DM2 Addtl Attending Provider Instructions: You were admitted to the hospital due to experiencing palpitations for the last 1 to 2 months. Given that you were recently underwent orthopedic surgery, we did a chest CTA to make sure that this sensation of your heart beating against your chest with the occasional shortness of breath and lightheadedness was not related to something called a pulmonary embolism (a clot that traveled to your lungs). Fortunately, this did not show any emboli or other concerning changes. We also did an ultrasound of your heart (called an echocardiogram) to evaluate for possible structural reasons that you are experiencing the symptoms. However, this test was also unremarkable and did not show any abnormalities. Given that you are clinically stable and you are no longer experiencing symptoms, we will be discharging you home today. We would recommend that you discuss with your primary care provider about getting a pre fabricator, which is a device that would record the rhythm of your heart to see if there are any abnormalities that would correlate with the symptoms that you are experiencing. A discharge summary will be sent to your primary care physician to ensure continuity of care. Please bring this discharge summary with you to your next office appointment so that your provider can review it at that time. CONTACT YOUR PRIMARY CARE PROVIDER if you experience any of the following: Worsening of symptoms Fever, chills, or fatigue Difficulty following your treatment plan, or difficulty taking medications CALL 911 OR GO TO THE EMERGENCY DEPARTMENT if you experience any of the following: Sudden, severe abdominal pain or nausea/vomiting Severe chest pain, or chest pain that radiates (moves) to your jaw or arm Sudden, severe shortness of breath or difficulty breathing Thank you for allowing us to participate in your care. Pending Studies at Discharge: No Stand-Alone Forms: [facility], Smoking Cessation Medications and DC Order Prescriptions: New aspirin 81 mg Tablet,Delayed Release (Dr/Ec) 81 mg PO BID Qty: 60 0RF Continued metformin 500 mg tablet 500 mg PO HS cholecalciferol (vitamin D3) [Vitamin D3] 25 mcg (1,000 unit) Tablet 3,000 unit PO QAM Rx Instructions: TAKE 3 TABLETS DAILY omega 4-ous-usk-fish oil [Fish Oil] 1,000 mg (120 mg-180 mg) Capsule 2 cap PO QPM Hold Instructions: Resume on 03/15/25. L.acid-L.rham-B.breve-S.therm 3 billion cell Tablet,Chewable 2 tab PO QAM turmeric root-randall root ext 150-25 mg Tablet,Chewable 2 tab PO QAM semaglutide 1 mg/dose (2 mg/1.5 mL) Pen Injector 1 mg SUBCUT WK meloxicam 15 mg Tablet 15 mg PO HS lisinopril 2.5 mg Tablet 2.5 mg PO HS rosuvastatin 5 mg Tablet 5 mg PO HS duloxetine 30 mg Capsule,Delayed Release(Dr/Ec) 30 mg PO HS oxycodone 5 mg tablet 10 mg PO Q6H PRN (Reason: pain) Qty: 20 0RF Rx Instructions: initial script Discharge Orders: Discharge Order (Routine); Ordered 02/15/25 Ordered By: Raysa Mccray Admission Data Admit Date/Time: 02/15/25 03:15 Attending Provider: Saeid Pineda Admit Provider: Olena Lion Primary Care Provider: Chary Marks Other Providers: Quan Reyes Supervising Physician Co-Signing Physician Notes Attending attestation Pt seen and examined in concert with Dr. Mahendra Colon. In agreement with the documented findings as noted in the resident documentation with any exceptions or additions as noted here. Patient resting comfortably in bed with resolution of acute complaint. VS as noted. On examination, S1/S2 nl RRR no MCG. CTAB. Abd NT/ND BS+ve Palpitations s/p left hip total hip replacement - no significant changes on EKG nor telemetry with underlying organic w/u as noted. Agree w/ outpatient follow up and tele monitoring. CT findings - CT chest showing bibasilar scarring/atelectasis c/w postoperative state and without significant concerning clinical correlation karmen w/ neg PE study. Else see resident documentation as noted. Total attending physician time spent with this patient's care on the day of discharge: 35 minutes. Resident Activity Tracking Resident Involvement: Resident Care Provided Care Provided: Adult Hospital Medicine
--- NOTE | 2025-02-15 18:25 | Electrocardiogram Report ---
Test Reason : Blood Pressure : */* mmHG Vent. Rate : 103 BPM Atrial Rate : * BPM P-R Int : * ms QRS Dur : 86 ms QT Int : 338 ms P-R-T Axes : * -8 40 degrees QTcB Int : 442 ms Normal sinus rhythm Incomplete right bundle branch block When compared with ECG of 22-Jan-2025 09:27, ST now depressed in Lateral leads T wave inversion now evident in Lateral leads Confirmed by Saeid Bowen ([id number]) on 02/15/2025 6:25:42 PM Referred By: REFERRED SELF Confirmed By: Saeid Bowen
--- NOTE | 2025-02-15 18:37 | Electrocardiogram Report ---
Test Reason : Blood Pressure : */* mmHG Vent. Rate : 82 BPM Atrial Rate : 82 BPM P-R Int : 114 ms QRS Dur : 92 ms QT Int : 362 ms P-R-T Axes : 26 9 41 degrees QTcB Int : 422 ms Normal sinus rhythm Incomplete right bundle branch block Abnormal ECG When compared with ECG of 14-Feb-2025 21:48, (unconfirmed) ST no longer depressed in Lateral leads T wave inversion no longer evident in Lateral leads Confirmed by Saeid Bowen ([id number]) on 02/15/2025 6:37:14 PM Referred By: REFERRED SELF Confirmed By: Saeid Bowen
[2025-02-15] MEDS ORDERED: ROSUVASTATIN CALCIUM 5 MG TAB PO SCH (21:00)
== END 2025-02-15 15:45 | disposition home or self-care (01) ==
LOC: EDINP 21:34 → ED 21:34 → SUATTDRO 02-15 03:15 → EDINP 02-15 03:49
DX: Z79.899 Other long term (current) drug therapy; Z88.0 Allergy status to penicillin; Z79.84 Long term (current) use of oral hypoglycemic drugs; Z96.642 Presence of left artificial hip joint; I10 Essential (primary) hypertension; E11.9 Type 2 diabetes mellitus without complications; R00.0 Tachycardia, unspecified; R00.2 Palpitations; M16.12 Unilateral primary osteoarthritis, left hip